=== PATIENT | female | born 2000 | race Caucasian/White ===

== ENCOUNTER 2021-11-04 03:05 | Emergency (ER) | payer MEDICAID ==
[~2021-11-04] VITALS: Ht 162.6 cm; Wt 98.4 kg
[2021-11-04 03:46] VITALS: BP 141/92
[2021-11-04] MEDS ORDERED: KETOROLAC TROMETH 30 MG/ML 1ML VIAL IM ONE (04:15)
== END 2021-11-04 05:45 | disposition home or self-care (01) ==
LOC: ER 03:05
DX: H92.03 Otalgia, bilateral (principal); E66.9 Obesity, unspecified; Z68.37 Body mass index [BMI] 37.0-37.9, adult; Z88.5 Allergy status to narcotic agent
CPT/HCPCS: 96372; 99283; J1885